=== PATIENT | female | born 1960 | race American Indian/Alaskan Native ===

== ENCOUNTER 2021-05-28 10:34 | Outpatient (CLI) | payer OTHER ==
--- NOTE | 2021-05-28 12:14 | XRay Report ---
BILATERAL KNEES 3 VIEWS INDICATION: Bilateral knee pain. COMPARISON: None. IMPRESSION: Moderate to severe tricompartmental osteoarthritic changes are identified in both knees. No acute osseous injury or bone lesion is identified. The soft tissues are unremarkable. LEFT ANKLE 2 VIEWS INDICATION: LEFT ANKLE PAIN. COMPARISON: None. IMPRESSION: There is severe diffuse soft tissue swelling or edema. No acute osseous injury or bone lesion is detected. Mild osteoarthritic joint space narrowing is noted at the ankle. Large plantar sp ur. Signer Name: Richard Blackwell Jr, MD Signed: 05/28/2021 12:10 PM Workstation Name: [id number]
== END 2021-05-28 10:35 | disposition home or self-care (01) ==
LOC: XRAY 10:34
PROVIDERS: ATTEND Internal Medicine
DX: M17.0 Bilateral primary osteoarthritis of knee (principal); M19.072 Primary osteoarthritis, left ankle and foot; M77.32 Calcaneal spur, left foot